=== PATIENT | male | born 2000 | race American Indian/Alaskan Native ===

== ENCOUNTER 2021-11-08 21:34 | Emergency (ER) | payer BC ==
--- NOTE | 2021-11-08 22:25 | XRay Report ---
Soft tissue neck 2 views INDICATION: Swallowing difficulty FINDINGS: No prevertebral soft tissue swelling. Airway appears normal and intact. No radiopaque forei gn body is definitely seen. IMPRESSION: No radiopaque foreign body is definitely seen. If symptoms persist follow-up with upper GI examinatio n/barium swallow could be performed. Signer Name: Bib Sloan MD Signed: 11/08/2021 10:20 PM Workstation Name: [id number]
--- NOTE | 2021-11-09 04:02 | Event Note ---
Date: 11/09/21 Medical screening examination note: 20-year-old gentleman, presenting to the ER today with a complaint of sensation of possible turkey bone in his throat. This started at around 6:00 PM yesterday. On my examination, the patient is not stridulous, he is phonating in complete sentences, and he is in no respiratory distress. X-rays ordered, detailed history and physical to be performed by oncoming provider. N.p.o., head of bed elevated, aspiration precautions ordered Vital Signs 11/08/21 21:43 Temperature 99.0 F Pulse Rate 88 Respiratory 18 Rate Blood Pressure 125/78 O2 Sat by Pulse 99 Oximetry
[2021-11-09] MEDS ORDERED: GLUCAGON (HUMAN RECOMBINANT) 1 MG/ML INJ IM ONE (06:12)
--- NOTE | 2021-11-09 07:25 | Emergency Department Report ---
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 -: Sudden, minutes(s) Location: mouth Associated Symptoms: denies: denies other symptoms, confusion, chest pain, cou gh, diaphoresis, headaches, loss of appetite, malaise Treatments Prior to Arrival: none - Related Data Allergies Allergy/AdvReac Type Severity Reaction Status Date / Time No Known Allergies Allergy Verified 11/08/21 21:58 ED Review of Systems ROS: Stated complaint: TURKEY BONE STUCK IN THROAT Other details as noted in HPI Constitutional: denies: chills, fever Eyes: denies: eye pain, eye discharge, vision change ENT: denies: ear pain, throat pain Respiratory: denies: cough, shortness of breath, wheezing Cardiovascular: denies: chest pain, palpitations Endocrine: no symptoms reported Gastrointestinal: denies: abdominal pain, nausea, diarrhea Genitourinary: denies: urgency, dysuria Musculoskeletal: denies: back pain, joint swelling, arthralgia Skin: denies: rash, lesions Neurological: denies: headache, weakness, paresthesias Psychiatric: denies: anxiety, depression Hematological/Lymphatic: denies: easy bleeding, easy bruising ED Past Medical Hx - Past Medical History Previous Medical History?: No Hx Hypertension: No ED Physical Exam - General Limitations: No Limitations General appearance: alert, in no apparent distress - Head Head exam: Present: atraumatic, normocephalic - Eye Eye exam: Present: normal appearance - ENT ENT exam: Present: mucous membranes moist - Neck Neck exam: Present: normal inspection - Respiratory Respiratory exam: Present: normal lung sounds bilaterally. Absent: respiratory distress - Cardiovascular Cardiovascular Exam: Present: regular rate, normal rhythm. Absent: systolic murmur, diastolic murmur, rubs, gallop - GI/Abdominal GI/Abdominal exam: Present: soft, normal bowel sounds - Rectal Rectal exam: Present: deferred - Extremities Exam Extremities exam: Present: normal inspection - Back Exam Back exam: Present: normal inspection - Neurological Exam Neurological exam: Present: alert, oriented X3 - Psychiatric Psychiatric exam: Present: normal affect, normal mood - Skin Skin exam: Present: warm, dry, intact, normal color. Absent: rash ED Course Vital Signs 11/08/21 21:43 Temperature 99.0 F Pulse Rate 88 Respiratory 18 Rate Blood Pressure 125/78 O2 Sat by Pulse 99 Oximetry ED Medical Decision Making - Radiology Data Radiology results: report reviewed, image reviewed - Medical Decision Making vss , glucagon given fels better , able to tolerate po Critical care attestation.: If time is entered above; I have spent that time in minutes in the direct care of this critically ill patient, excluding procedure time. ED Disposition Clinical Impression: Foreign body in esophagus Disposition: HOME / SELF CARE / HOMELESS Is pt being admited?: No Does the pt Need Aspirin: No Condition: Stable Instructions: Swallowed Foreign Body, Adult, [id number] Referrals: JOSEPH QUICK MD [Primary Care Provider] - 3-5 Days
[2021-11-09 07:36] VITALS: BP 126/78
== END 2021-11-09 07:41 | disposition home or self-care (01) ==
LOC: ED 21:34
DX: S10.15XA Superficial foreign body of throat, initial encounter (principal); X58.XXXA Exposure to other specified factors, initial encounter; Y93.89 Activity, other specified; Y92.89 Other specified places as the place of occurrence of the external cause; Y99.8 Other external cause status
CPT/HCPCS: 70360; 96372; 99283; J1610